=== PATIENT | male | born 2000 | race Caucasian/White ===

== ENCOUNTER 2024-04-14 23:33 | Emergency (ER) | payer OTHER ==
--- NOTE | 2024-04-15 00:33 | ED ---
General Adult HPI - General Chief complaint: Fall Stated complaint: Fall nausea head pain Time Seen by Provider: 04/15/24 00:02 Source: patient, family Mode of arrival: ambulatory Limitations: no limitations - History of Present Illness Initial comments: Patient is a pleasant 23-year-old male past medical history of prior NM not currently on any medications presenting today for concerns for concussion after falling from the back of a truck. Patient states that he was at work when he fell approximately 3 feet onto gravel. He does not remember hitting his head or loss of consciousness but remembers upon landing looking for his ear pod so that he could continue talking to his boss on the phone. Later this evening patient began experiencing a persistent headache starting at his right shinto nausea and dry heaves. He lives with a roommate/his landlord who is concerned given patient's fall and now headache nausea and vomiting so convinced him to seek medical care. Patient called a telehealth doctor who directed him to the emergency department. Patient currently states that he intermittently has some blurry vision however blinks a few times and this resolves. Otherwise denies visual field changes. Denies any numbness, focal weakness, neck pain, back pain, dizziness, slurred speech. Did take Tylenol at 8 PM. States he also has pain in his right fifth knuckle and notes chronic right knee pain but states that this has been present for awhile. Patient able to ambulate without difficulty. Patient does not take any blood thinners. He denies alcohol or illicit drug use today. - Related Data Allergies Allergy/AdvReac Type Severity Reaction Status Date / Time epinephrine AdvReac Rapid Verified 04/14/24 23:48 Heart Rate Review of Systems ROS Statement: Those systems with pertinent positive or pertinent negative responses have been documented in the HPI. ROS Other: All systems not noted in ROS Statement are negative. Constitutional: Denies: weakness Eyes: Denies: vision change Respiratory: Denies: dyspnea Cardiovascular: Denies: chest pain Gastrointestinal: Reports: nausea. Denies: abdominal pain, vomiting Musculoskeletal: Reports: arthralgia (Right fifth knuckle and right knee pain). Denies: back pain, joint swelling Neurological: Reports: headache. Denies: weakness, numbness, paresthesias, confusion Past Medical History Past Medical History: Hypertension, Myocardial Infarction (NM) Additional Past Medical History / Comment(s): holter monitor and found to have episodes of SVT, pt reports issues strted after covid vaccine. pre DM History of Any Multi-Drug Resistant Organisms: None Reported Past Surgical History: Heart Catheterization, Orthopedic Surgery Past Psychological History: Anxiety Smoking Status: Vaper Past Alcohol Use History: Occasional Past Drug Use History: None Reported General Exam - General Exam Comments Initial Comments: PE: CONSTITUTIONAL: No apparent distress, well appearing SKIN: Warm, dry, no jaundice, hives or petechiae, no lacerations or bruising EYES: Pupils are equally round, extraocular movements intact without nystagmus, clear conjunctiva, non-icteric sclera HENT: Normocephalic, atraumatic, no palpable skull hematomas moist mucus membranes, oropharynx clear without exudates NECK: , Full range of motion, normal appearance, There is no midline cervical neck tenderness or step-offs. The patient denies any numbess, tingling, or weakness of the extremities when moving neck through full ROM. The patient is able to range their neck completely without midline cervical pain, numbness, tingling or weakness. PULMONARY: Clear to auscultation without wheezes, rhonchi, or rales, normal excursion, no accessory muscle use and no stridor CARDIOVASCULAR: Regular rate, rhythm, normal S1 and S2. No appreciated murmurs, rubs or gallops. Strong radial pulses with intact distal perfusion. No lower extremity edema GASTROINTESTINAL: Soft, non-tender, non-distended, no palpable masses, no rebound or guarding. No hepatosplenomegaly MUSCULOSKELETAL: Extremities have no gross deformity, no edema, redness, or swelling. No midline spinal tenderness to palpation. Tenderness palpation over the fifth right knuckle at the MCP joint, pain with active extension of the fifth digit however patient is able to form a fist and extend his fingers/move his hands are full range of motion without difficulty, sensation intact, no deformity or swelling present; right knee examined, patient able to range right knee through full range of motion without difficulty, no tenderness to palpation, joint deformity, bruising or other signs of injury NEUROLOGIC:_a/o x 3, GCS 15, normal mentation and speech. Moves all extremities x 4 without motor or sensory deficit; cranial nerves: II (visual hoover without defects), III, IV and (extraocular movements are intact, pupils are equal with normal reaction to light), V (intact facial sensation and jaw opening), VII (no facial droop), IX and X (normal palate movement, midline uvula, normal voice), XI (symmetrical shoulder shrug and lateral head rotation against resistance), XII (midline tongue protrusion). Motor strength is 5/5 in all extremities. No abnormal movements. Normal muscle tone. Sensation to light touch is intact bilaterally. No cerebellar signs (luexor-kk-coju normal) PSYCHIATRIC:_normal mood and affect, thought process is clear and linear Limitations: no limitations Course Vital Signs 04/14/24 04/15/24 23:49 04:24 Temperature 97.7 F 98.1 F Pulse Rate 66 73 Respiratory 19 18 Rate Blood Pressure 138/86 129/81 O2 Sat by Pulse 98 98 Oximetry Procedures - Orthopedic Splinting/Casting Injury #1 Side: right Upper Extremity Injury Location: hand Upper Extremity Immobilizer: ulnar gutter Additional Comments: Post splint check shows less than 2-second capillary refill, sensation light touch intact, neurovascularly intact Medical Decision Making - Medical Decision Making Was pt. sent in by a medical professional or institution (, PA, [employer], urgent care, hospital, or alf...) When possible be specific @ -No Did you speak to anyone other than the patient for history (EMS, parent, family, police, friend...)? What history was obtained from this source @ -Patient presents with his landlord/roommate who assist in providing history Did you review nursing and triage notes (agree or disagree)? Why? @ -I reviewed and agree with nursing and triage notes Were old charts reviewed (outside hosp., previous admission, EMS record, old E KG, old radiological studies, urgent care reports/EKG's, alf records)? Report findings @No old charts available for review Differential Diagnosis (chest pain, altered mental status, abdominal pain women, abdominal pain men, vaginal bleeding, weakness, fever, dyspnea, syncope, headache, dizziness, GI bleed, back pain, seizure, CVA, palpatations, mental health, musculoskeletal)? @ -Differential diagnosis remains broad over top considerations include concussion, traumatic intracranial injury/traumatic intracranial hemorrhage, headache, boxer's fracture, contusion, sprain. This is not meant to be all inclusive list EKG interpreted by me (3pts min.). @ -As above X-rays interpreted by me (1pt min.). @ No fracture or dislocation noted CT interpreted by me (1pt min.). @ -No evidence of intracranial hemorrhage or skull fracture U/S interpreted by me (1pt. min.). @ -None done What testing was considered but not performed or refused? (CT, X-rays, U/S, labs)? Why? @ -None What meds were considered but not given or refused? Why? @ Did consider toradol for HUNTER however patient unable to have NSAIDs due to hx of NM Did you discuss the management of the patient with other professionals ( professionals i.e. , PA, [employer], lab, RT, psych nurse, social worker aide, divorce lawyer, teacher, affirmative action officer, case briefer)? Give summary @ -No Was smoking cessation discussed for >3mins.? @ -No Was critical care preformed (if so, how long)? @ -No Were there social determinants of health that impacted care today? How? (Homelessness, low income, unemployed, alcoholism, drug addiction, transportation, low edu. Level, literacy, decrease access to med. care, group home, rehab)? @ -No Was there de-escalation of care discussed even if they declined (Discuss DNR or withdrawal of care, Hospice)? @ -No What co-morbidities impacted this encounter? (DM, HTN, Smoking, COPD, CAD, Cancer, CVA, ARF, Chemo, Hep., AIDS, mental health diagnosis, sleep apnea, morbid obesity)? @ -None Was patient admitted / discharged? Hospital course, mention meds given and route, prescriptions, significant lab abnormalities, going to OR and other pertinent info. @ -Hospital course Patient is a 23-year-old gentleman the past medical history of prior NM presenting today for in the company of his roommate/landlord for headache and dry heaves after a fall that occurred this afternoon. On assessment patient is patient and around his room awake and alert. States that headache feels better while ambulating. Physical exam performed; significant for patient being neurologically intact w/ any focal neurologic deficits, tenderness to palpation of the fifth right MCP joint without deformity patient able to range fingers and fist through full range of motion without difficult. Patient has no C-spine tenderness. There is no midline cervical neck tenderness or step-offs. The patient denies any numbess, tingling, or weakness of the extremities when moving neck through full ROM. The patient is able to range their neck completely without midline cervical pain, numbness, tingling or weakness. Nexus C-spine rule negative, patient has no focal neurologic deficits, no midline spinal tenderness, no altered level of consciousness is not intoxicated and has no distracting injury. Discussed with patient plan for CT brain and x-ray of his right hand. Given patient's history of a prior NM he cannot receive NSAIDs and took Tylenol at 8 PM. Discussed with patient trialing Valium for his headache. Offered to Zofran. Patient willing to trial Valium platelet declined Zofran. CT brain negative for acute process. Updated patient. Pending XR. XR read taking an extensive amount of time to result. Discussed with patient option of awaiting XR read or discharge with application of ulnar gutter splint to protect for potential boxer's fracture given point tenderness over 5th metacarpal phalangeal joint and ortho follow up. Regardless of XR read, concern would remain for occult fracture 2/2 patient's point tenderness/ exam. Patient agreeable and comfortable with application splint and discharge without awaiting radiologist read. Ulnar gutter splint applied. Post splint check shows that patient is neurovascularly intact. I discussed with the patient splint care as well as diagnosis of a concussion and concussion care. Patient was comfortable and agreeable discharge at this point. In my medical judgment there is currently no evidence of an immediate life- threatening or surgical condition. Discharge is therefore indicated at this time. Discharge treatment instructions, follow up instructions, and appropriate emergency department return precautions were discussed with the patient and/or medical decision maker. Patient and/or medical decision maker expressed understanding of and agreed with the treatment plan, follow up instructions, and emergency department return precaution. All patient's and/or medical decision maker's questions were answered. The patient was advised that a small risk still exists that a serious condition could develop and was therefore instructed to return to the ED for any changes in symptoms, persistent symptoms, inability to obtain proper follow-up or for any further concerns. Patient received verbal and written instructions for this condition. Undiagnosed new problem with uncertain prognosis? @ -No Drug Therapy requiring intensive monitoring for toxicity (Heparin, Nitro, Insulin, Cardizem)? @ -No Were any procedures done? @ -Splint application Diagnosis/symptom? @Concussion, hand injury Acute, or Chronic, or Acute on Chronic? @ -Acute Uncomplicated (without systemic symptoms) or Complicated (systemic symptoms)? @Complicated Side effects of treatment? @ -No Exacerbation, Progression, or Severe Exacerbation? @ -No Poses a threat to life or bodily function? How? (Chest pain, USA, NM, pneumonia, PE, COPD, DKA, ARF, appy, cholecystitis, CVA, Diverticulitis, Homicidal, Suicidal, threat to staff... and all critical care pts) @Potentially prior to assessment, head injury can be life threatening, at time of discharge though, no Disposition Clinical Impression: Fall, Concussion, Boxers fracture Disposition: HOME SELF-CARE Condition: Good Instructions (If sedation given, give patient instructions): Concussion (ED), Boxer Fracture (ED) Additional Instructions: Every disease is a spectrum and a small chance still exists that a serious condition could develop, for this reason, please monitor yourself closely for ne w, changing or worsening symptoms, symptoms that persist beyond [48 hours], headaches that you cannot control at home medications, sudden worsening of your headache, severe nausea and vomiting, confusion, changes in vision, slurred speech, numbness or weakness in your extremities, swelling, numbness or uncontrollable pain in your affected arm [fever], inability to tolerate/keep down fluids or your medications, inability to follow up with outpatient providers as instructed and should you experience these symptoms or should you have any further concerns for your wellbeing please return to the ED or call 911 immediately. This information is being provided to you in addition to your ER discharge instructions. Today you were evaluated for a concussion. A concussion is a blow or jolt to your head that can disrupt the normal function of the brain. A concussion is not usually life threatening, but the effect of a concussion can be serious. Loss of consciousness only occurs in less than 10% of all concussions. CT scans of the brain are almost always normal. The injuries from concussion are hard to picture because there isn't anything to see. The damage to the brain is microscopic. Concussion is diagnosed, for the most part based on the history of the injury and the symptoms. Signs and symptoms of concussion Headache, nausea and/or vomiting, problems with balance and/or walking, di zziness, vision changes (double vision, fuzzy, blurry), sensitivity to light and noise, feeling sluggish or slowed down/tired, sleep disturbances (sleeping too much or not enough), changes in behavior or personality, feeling "foggy" mentally, slow to respond to questions, problems with concentration and/or memery (amnesia), appears dazed, repeats same questions Caring for Your Concussion at Home The most important thing for you to do is stop all activity, that could lead to further head injury. THE BRAIN NEEDS REST. Manage your pain as per your doctor's orders (avoid Motrin, Aleve and Aspirin because they can cause bleeding to become worse). You may put ice on swollen areas and keep wounds clean. Provide fluids and a light diet until you feel better. Monitor yourself for any of the symptoms mentioned above when at rest and when active. If you shows any of these symptoms then you have not recovered from the concussion and cannot return to normal activity Returning to Normal Activity Because there are many differences of opinion in the criteria used to establish when you can return to normal activities, we recommend that you consult your health care provider and let them make the final determination. If you have symptoms that continue longer than one week you need to be re-evaluated by your health care provider. You may need a referral to have neurocognitive (this is a special evaluation that evaluates learning, memory and coordination) testing done by a neuropsychologist. When it is important to immediately return to the ER If, after you go home, you develop a severe headache, vomiting, severe drowsiness, the inability to wake up or seizures. Return to the ER immediately as these are signs of increased pressure within the brain. Please ice and elevate your affected extremity 20 minutes every 3-4 hours. Your pain can be treated with acetaminophen. You can take up to 1000 mg of acetaminophen (Tylenol) every 6 hours. Be careful as this is included in some medicines like Nyquil, [place], Percocet, Vicodin, STANBACK, Goody's Powders, and Excedrin. You can also use lidocaine patches for topical pain. You can purchase 4% patches over the counter at most drug stores. These can be helpful for pain from your muscles or bones. Please keep your splint clean and dry PLEASE call your primary care physician as soon as possible to arrange / discuss plan for followup appointment. Appointment in the next 1-3 days is strongly encouraged if possible. PLEASE let us know here before you leave if there is anything further we can do to be of any assistance. Take care and feel Better! Is patient prescribed a controlled substance at d/c from ED?: No Referrals: None,Stated [Primary Care Provider] - 1-2 days Vinay Villanueva MD [STAFF PHYSICIAN] - 1-2 days
[2024-04-15] MEDS: diazePAM 5 MG TAB PO STA (00:48)
--- NOTE | 2024-04-15 01:17 | CT ---
EXAM: CT Head Without Intravenous Contrast CLINICAL HISTORY: ITS.REASON CT Reason: fall, persistent HUNTER and nausea TECHNIQUE: Axial computed tomography images of the head/brain without intravenous contrast. CTDI is 49.1 mGy and DLP is 1168.4 mGy-cm. This CT exam was performed using one or more of the following dose reduction techniques: automated exposure control, adjustment of the mA and/or kV according to patient size, and/or use of iterative reconstruction technique. COMPARISON: No relevant prior studies available. FINDINGS: Brain: Unremarkable. No hemorrhage. No significant white matter disease. No edema. Ventricles: Unremarkable. No ventriculomegaly. Bones/joints: Unremarkable. No acute fracture. Soft tissues: Unremarkable. Sinuses: Unremarkable as visualized. No acute sinusitis. Mastoid air cells: Unremarkable as visualized. No mastoid effusion. IMPRESSION: Normal head/brain CT.
[2024-04-15 04:25] VITALS: BP 129/81; PULSE 73; RESP 18; TEMP 98.1
--- NOTE | 2024-04-15 05:44 | XR ---
EXAM: XR Right Hand Complete, 3 or More Views CLINICAL HISTORY: ITS.REASON XR Reason: fall, TTP at 5th MCP joint TECHNIQUE: Frontal, lateral and oblique views of the right hand. COMPARISON: None FINDINGS: Bones/joints: No displaced fracture or dislocation identified. Joint space is maintained. No bony lesion. Soft tissues: Normal. No radiopaque foreign body identified. IMPRESSION: No displaced fracture or dislocation identified.
== END 2024-04-15 04:25 | disposition home or self-care (01) ==
LOC: EC 23:33
CPT/HCPCS: 29125; 70450; 99284

== ENCOUNTER 2024-10-01 03:09 | Emergency (ER) | payer OTHER ==
[2024-10-01 04:08] LABS: Basophils # (A) 0.1 k/uL (0-0.2); Basophils % (A) 0 %; Eosinophils # (A) 0.1 k/uL (0-0.7); Eosinophils % (A) 1 %; HCT 43.8 % (39.0-53.0); HGB 14.4 gm/dL (13.0-17.5); Lymphocytes # (A) 1.6 k/uL (1.0-4.8); Lymphocytes % (A) 12 %; MCH 29.8 pg (25.0-35.0); MCHC 32.9 g/dL (31.0-37.0); MCV 90.7 fL (80.0-100.0); Mean Platelet Volume 8.6; Monocytes # (A) 0.5 k/uL (0-1.0); Monocytes % (A) 4 %; Neutrophils # (A) 10.8 k/uL (1.3-7.7); Neutrophils % (A) 82 %; Platelet Count 226 k/uL (150-450); RBC 4.83 m/uL (4.30-5.90); RDW 13.3 % (11.5-15.5); WBC 13.2 k/uL (3.8-10.6)
--- NOTE | 2024-10-01 04:09 | CT ---
EXAM: CT Head Without Intravenous Contrast CLINICAL HISTORY: ITS.REASON CT Reason: trauma TECHNIQUE: Axial computed tomography images of the head/brain without intravenous contrast. CTDI is 45.3 mGy and DLP is 1084.2 mGy-cm. This CT exam was performed using one or more of the following dose reduction techniques: automated exposure control, adjustment of the mA and/or kV according to patient size, and/or use of iterative reconstruction technique. COMPARISON: No relevant prior studies available. FINDINGS: Brain: Unremarkable. No hemorrhage. No significant white matter disease. No edema. Ventricles: Unremarkable. No ventriculomegaly. Bones/joints: Unremarkable. No acute fracture. Soft tissues: Unremarkable. Sinuses: Unremarkable as visualized. No acute sinusitis. Mastoid air cells: Unremarkable as visualized. No mastoid effusion. IMPRESSION: Normal head/brain CT. EXAM: CT Cervical Spine Without Intravenous Contrast CLINICAL HISTORY: ITS.REASON CT Reason: trauma TECHNIQUE: Axial computed tomography images of the cervical spine without intravenous contrast. CTDI is 8.1 mGy and DLP is 226.6 mGy-cm. This CT exam was performed using one or more of the following dose reduction techniques: automated exposure control, adjustment of the mA and/or kV according to patient size, and/or use of iterative reconstruction technique. COMPARISON: No relevant prior studies available. FINDINGS: Vertebrae: Unremarkable. No acute fracture. Discs/spinal canal/neural foramina: No acute findings. No spinal canal stenosis. Soft tissues: Unremarkable. IMPRESSION: Normal cervical spine CT.
[2024-10-01 04:16] LABS: Partial Thromboplastin Time 23.6 sec (22.0-30.0); Prothrombin Time 11.1 sec (10.0-12.5)
[2024-10-01 04:27] LABS: ALT 15 U/L (4-49); AST 24 U/L (17-59); African American GFR (CKD) >90 (>60 ml/min/1.73 sqM); Alkaline Phosphatase 70 U/L (38-126); Anion Gap 18 mmol/L; Blood Urea Nitrogen 11 mg/dL (9-20); Calcium 9.4 mg/dL (8.4-10.2); Carbon Dioxide 20 mmol/L (22-30); Chloride 105 mmol/L (98-107); Glucose 92 mg/dL (74-99); Non-African American GFR(CKD) >90 (>60 ml/min/1.73 sqM); Sodium 143 mmol/L (137-145); Total Bilirubin 0.6 mg/dL (0.2-1.3); Total Protein 7.7 g/dL (6.3-8.2)
--- NOTE | 2024-10-01 04:41 | CT ---
EXAM: CT Chest Without Intravenous Contrast CLINICAL HISTORY: ITS.REASON CT Reason: trauma TECHNIQUE: Axial computed tomography images of the chest without intravenous contrast. CTDI is 3.6 mGy and DLP is 315 mGy-cm. This CT exam was performed using one or more of the following dose reduction techniques: automated exposure control, adjustment of the mA and/or kV according to patient size, and/or use of iterative reconstruction technique. COMPARISON: No relevant prior studies available. FINDINGS: Lungs: Unremarkable. No mass. No consolidation. Pleural space: Unremarkable. No pneumothorax. No significant effusion. Heart: Unremarkable. No cardiomegaly. No significant pericardial effusion. No significant coronary artery calcifications. Bones/joints: Unremarkable. No acute fracture. No dislocation. Soft tissues: Unremarkable. Vasculature: Unremarkable. No thoracic aortic aneurysm. Lymph nodes: Unremarkable. No enlarged lymph nodes. IMPRESSION: Normal chest CT. EXAM: CT Abdomen and Pelvis Without Intravenous Contrast CLINICAL HISTORY: ITS.REASON CT Reason: trauma TECHNIQUE: Axial computed tomography images of the abdomen and pelvis without intravenous contrast. CTDI is 3.6 mGy and DLP is 315 mGy-cm. This CT exam was performed using one or more of the following dose reduction techniques: automated exposure control, adjustment of the mA and/or kV according to patient size, and/or use of iterative reconstruction technique. COMPARISON: No relevant prior studies available. FINDINGS: Lung bases: Unremarkable. No mass. No consolidation. ABDOMEN: Liver: Unremarkable. Gallbladder and bile ducts: Unremarkable. No calcified stones. No ductal dilation. Pancreas: Unremarkable. No ductal dilation. Spleen: Unremarkable. No splenomegaly. Adrenals: Unremarkable. No mass. Kidneys and ureters: Unremarkable. No obstructing stones. No hydronephrosis. Stomach and bowel: Unremarkable. No obstruction. No mucosal thickening. PELVIS: Appendix: No findings to suggest acute appendicitis. Bladder: Unremarkable. No stones. Reproductive: Unremarkable as visualized. ABDOMEN and PELVIS: Intraperitoneal space: Unremarkable. No free air. No significant fluid collection. Bones/joints: No acute fracture. No dislocation. Soft tissues: Unremarkable. Vasculature: Unremarkable. No abdominal aortic aneurysm. Lymph nodes: Unremarkable. No enlarged lymph nodes. IMPRESSION: Normal abdomen and pelvis CT.
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
[2024-10-01 05:26] LABS: Alcohol 120 mg/dL
[2024-10-01 06:54] VITALS: BP 119/65; PULSE 102; RESP 18; TEMP 98.7
== END 2024-10-01 06:50 | disposition home or self-care (01) ==
LOC: EC 03:09
DX: S20.219A Contusion of unspecified front wall of thorax, initial encounter (principal); F17.290 Nicotine dependence, other tobacco product, uncomplicated; Z88.8 Allergy status to other drugs, medicaments and biological substances; V49.40XA Driver injured in collision with unspecified motor vehicles in traffic accident, initial encounter; Y92.410 Unspecified street and highway as the place of occurrence of the external cause
CPT/HCPCS: 36415; 70450; 71250; 72125; 74176; 80053; 80320; 83605; 84484; 85025; 85610; 85730; 86850; 86900; 86901; 93005; 99285